=== PATIENT | male | born 1985 | race Caucasian/White ===

== ENCOUNTER 2020-06-13 22:49 | Emergency (ER) | payer SELFPAY ==
[~2020-06-13] VITALS: Ht 182.9 cm; Wt 73.6 kg
[2020-06-13] MEDS ORDERED: ONDANSETRON 2MG/ML, 2ML ONE (23:21)
[2020-06-13] MEDS ORDERED: MORPHINE SULFATE 4 MG/ML, 1ML ONE ×2 (23:21→23:54)
[2020-06-13] MEDS ORDERED: KETOROLAC 30 MG/1 ML ONE (23:22)
[2020-06-13] MEDS: MORPHINE SULFATE 4 MG/ML, 1ML IVPush PRN ×2 (23:25→23:56)
[2020-06-13] MEDS ORDERED: SODIUM CHLORIDE 0.9% 1,000ML IVBOLUS ONE (23:30)
[2020-06-13] MEDS ORDERED: KETOROLAC 30 MG/1 ML IVPush ONE (23:30)
[2020-06-13] MEDS ORDERED: SODIUM CHLORIDE FLUSH 10ML SYR IVF ONE (23:30)
[2020-06-13] MEDS ORDERED: ONDANSETRON 2MG/ML, 2ML IVPush ONE (23:30)
[2020-06-13 23:33] LABS: BASOPHILS % (AUTO) 1 % (0-1); EOSINOPHILS % (AUTO) 3 % (1-7); LYMPHOCYTES % (AUTO) 44 % (22-44); MEAN CORPUSCULAR HEMOGLOBIN 20.6 pg (27.5-34.5); MEAN CORPUSCULAR HGB CONC 30.6 g/dL (33.2-36.2); MEAN PLATELET VOLUME 7.9 fL (7.4-10.4); MONOCYTES % (AUTO) 11 % (2-9); NEUTROPHILS % (AUTO) 41 % (42-75); PLATELET COUNT 270 x10^3/uL (130-400); RED BLOOD COUNT 4.54 x10^6/uL (4.38-5.82); RED CELL DISTRIBUTION WIDTH 19.3 % (9.4-14.8)
[2020-06-13 23:38] LABS: MD SCAN
[2020-06-13 23:47] LABS: ALANINE AMINOTRANSFERASE 19 U/L (12-78); ALBUMIN 4.9 g/dL (3.4-5.0); ANION GAP 5 mmol/L (5-15); CALCIUM 9.5 mg/dL (8.5-10.1); CHLORIDE 105 mmol/L (98-107)
[2020-06-13 23:50] LABS: ALKALINE PHOSPHATASE 51 U/L (45-117); BILIRUBIN,TOTAL 0.3 mg/dL (0.2-1.0); TOTAL PROTEIN 8.1 g/dL (6.4-8.2)
[2020-06-14] MEDS ORDERED: HYDROmorphone 1 MG/ML, 1ML INJ ONE ×4 (00:21→03:28)
[2020-06-14] MEDS ORDERED: HYDROmorphone 1 MG/ML, 1ML INJ IV ONE ×4 (00:30→03:30)
[2020-06-14 00:43] LABS: MICROSCOPIC AUTO
--- NOTE | 2020-06-14 01:00 | NUR ---
REPORT GIVEN TO RENETTA STEWART.
--- NOTE | 2020-06-14 01:24 | NUR ---
Pt having pain. Provider aware, and new orders given. Pt medicated per order. Pt on monitor. Will continue to monitor.
[2020-06-14] MEDS ORDERED: TAMSULOSIN 0.4 MG CAP.ER.24H ONE (02:29)
[2020-06-14] MEDS ORDERED: TAMSULOSIN 0.4 MG CAP.ER.24H PO ONE (02:30)
--- NOTE | 2020-06-14 02:34 | NUR ---
PT MEDICATED FOR PAIN AT THIS TIME
--- NOTE | 2020-06-14 03:38 | NUR ---
Provider at bedside. New order for pain meds. Pt continues to state he has pain in his flank and groin. pt on monitor with stable VS. Pt on RA with sats in mid 90's. Pt with non-labored breathing. Will continue to monitor.
[2020-06-14 04:50] VITALS: BP 140/89
--- NOTE | 2020-06-14 04:51 | NUR ---
IV dc'd intact. HR reported to provider and ok to DC. Pt states feeling much better. Pt A&O x 4, stable on feet. Pt instructed not to drive, and states his brother is here to pick him up. Patient given discharge instructions and they have confirmed that they understand the instructions. Patient ambulatory with steady gait.
== END 2020-06-14 04:54 | disposition home or self-care (01) ==
LOC: ED 06-14 00:46
DX: R10.32 Left lower quadrant pain (principal); R11.2 Nausea with vomiting, unspecified
CPT/HCPCS: 36415; 76770; 80053; 81001; 85025; 93005; 96361; 96374; 96375; 96376; 99285; J1170; J1885; J2270; J2405; J7030